=== PATIENT | male | born 1970 | race African-American/Black ===

== ENCOUNTER 2016-10-06 13:22 | Emergency (ER) | payer SELFPAY ==
[~2016-10-06] VITALS: Ht 182.9 cm; Wt 226.0 kg
[2016-10-06 13:43] VITALS: BP 122/90
== END 2016-10-06 16:33 | disposition left against medical advice (07) ==
LOC: ER 15:53
DX: M25.571 Pain in right ankle and joints of right foot (principal); Z53.21 Procedure and treatment not carried out due to patient leaving prior to being seen by health care provider